=== PATIENT | female | born 1985 | race American Indian/Alaskan Native ===

== ENCOUNTER 2017-07-19 11:02 | Outpatient (CLI) | payer BC, MEDICAID ==
[2017-07-19 11:30] LABS: Albumin 3.5 g/dL (3.9-5); BUN/Creatinine Ratio 19; Blood Urea Nitrogen 17 mg/dL (7-17); Calcium 8.5 mg/dL (8.4-10.2); Hemolysis Index 9; Uric Acid 8.6 mg/dL (3.5-7.6)
[2017-07-19 12:42] LABS: Creatinine,Urine 171.4 mg/dL (0.1-20.0); Protein/Creatinine Ratio,Urine 0.34
== END 2017-07-19 11:03 | disposition home or self-care (01) ==
LOC: LAB 11:02
PROVIDERS: ATTEND Internal Medicine Nephrology
DX: I10 Essential (primary) hypertension (principal); N04.0 Nephrotic syndrome with minor glomerular abnormality; E55.9 Vitamin D deficiency, unspecified; R94.4 Abnormal results of kidney function studies; M85.80 Other specified disorders of bone density and structure, unspecified site
CPT/HCPCS: 36415; 80048; 82040; 82570; 83735; 84100; 84156; 84550

== ENCOUNTER 2017-11-22 10:52 | Outpatient (CLI) | payer BC ==
[2017-11-22 11:19] LABS: Bacteria,Urine 2+ /HPF (Negative); Bilirubin,Urine NEG (Negative); Blood,Urine NEG (Negative); Color,Urine Yellow (Yellow); Urobilinogen,Urine < 2.0 mg/dL (<2.0)
== END 2017-11-22 10:53 | disposition home or self-care (01) ==
LOC: LAB 10:52
PROVIDERS: ATTEND Internal Medicine
DX: N04.8 Nephrotic syndrome with other morphologic changes (principal)
CPT/HCPCS: 81001; 87086